=== PATIENT | female | born 1980 | race African-American/Black ===

== ENCOUNTER 2020-05-12 19:13 | Emergency (ER) | payer OTHER ==
[~2020-05-12] VITALS: Ht 172.7 cm; Wt 69.0 kg
[2020-05-12 19:16] VITALS: BP 139/84
[2020-05-12 20:00] LABS: CHLORIDE 109 mEq/L (98-107)
[2020-05-12 20:02] LABS: BASOPHILS % 0.6 % (0.0-2.0); EOSINOPHILS % 0.7 % (0.0-5.0); HEMATOCRIT. 38.4 % (36.0-48.0); HEMOGLOBIN. 12.5 g/dL (12.0-16.0); MEAN CORPUSCULAR HEMOGLOBIN 30.8 pg (28.0-32.0); MEAN CORPUSCULAR VOLUME 94.8 fL (81.0-99.0); MEAN PLATELET VOLUME 8.5 fl (7.4-10.4); MONOCYTES % 8.2 % (2.0-8.0); NEUTROPHILS % 40.5 % (40.0-76.0); PLATELET 238 x1000/uL (130-400); RED BLOOD CELL COUNT 4.05 mill/uL (4.2-5.4)
[2020-05-12 20:04] LABS: ETHANOL BLOOD < 10 mg/dL
[2020-05-12] MEDS ORDERED: NALO4SPR BOTHNSTRLS (20:56)
== END 2020-05-12 21:00 | disposition home or self-care (01) ==
LOC: ER 19:13 → EDBD 19:13 → ER 21:00
DX: T50.901A Poisoning by unspecified drugs, medicaments and biological substances, accidental (unintentional), initial encounter (principal); Y92.9 Unspecified place or not applicable
CPT/HCPCS: 36415; 80053; 80307; 80320; 80329; 85025; 93005; 99283; G0480

== ENCOUNTER 2020-09-12 14:26 | Emergency (ER) | payer MEDICAID ==
[~2020-09-12] VITALS: Ht 170.2 cm; Wt 80.0 kg
[2020-09-12 14:26] VITALS: BP 142/81
[~2020-09-12 14:26] MED LIST: NALO4SPR BOTHNSTRLS
== END 2020-09-12 14:41 | disposition home or self-care (01) ==
LOC: ER 14:26
DX: R56.9 Unspecified convulsions (principal); F17.290 Nicotine dependence, other tobacco product, uncomplicated
CPT/HCPCS: 93005; 99283

== ENCOUNTER 2020-09-17 16:22 | Emergency (ER) | payer MEDICAID ==
[~2020-09-17] VITALS: Ht 167.6 cm; Wt 80.0 kg
[2020-09-17 16:24] VITALS: BP 129/96
== END 2020-09-17 17:30 | disposition left against medical advice (07) ==
LOC: ER 16:43
DX: R55 Syncope and collapse (principal); Z13.9 Encounter for screening, unspecified
CPT/HCPCS: 99281

== ENCOUNTER 2020-10-27 12:27 | Emergency (ER) | payer MEDICAID | END 2020-10-27 13:41 | disposition left against medical advice (07) | LOC: ER 12:31 | DX: Z53.21 Procedure and treatment not carried out due to patient leaving prior to being seen by health care provider (principal); R56.9 Unspecified convulsions ==